=== PATIENT | female | born 1930 | race Caucasian/White ===

== ENCOUNTER 2018-04-22 16:02 | Emergency (ER) | payer OTHER ==
[~2018-04-22] VITALS: Ht 152.4 cm; Wt 59.0 kg
[~2018-04-22 16:02] MED LIST: ACID REDUCER 1150 MG; AMOX1TAB5; ATORVASTATIN CA10 MG; DULOXETINE HCL30 MG; DULOXETINE HCL60 MG; FOLBIC TABLET1 TAB; MEMANTINE HCL10 GM; NAMENDA10 MG; PNEU16DI2; PROVENTIL3 ML/2.5 M; RIVASTIGMINE1.5 MG; TUSSI PRES-B L120 M1; VIT BALANCED B-1 TAB; VITAMIN C500 MG; VITAMIN D-32000 UNIT; VITAMIN E400 UNI1; [UNRECOGNIZED DRUG - OTHER]
[2018-04-22] MEDS ORDERED: CENTRUM SILVER1 EAC2 (16:14)
== END 2018-04-22 18:33 | disposition home or self-care (01) ==
LOC: ER 16:02
DX: S20.212A Contusion of left front wall of thorax, initial encounter (principal); W01.198A Fall on same level from slipping, tripping and stumbling with subsequent striking against other object, initial encounter; Y93.E8 Activity, other personal hygiene; Y92.012 Bathroom of single-family (private) house as the place of occurrence of the external cause; Y99.8 Other external cause status

== ENCOUNTER 2018-09-22 16:32 | Inpatient (IN) | payer OTHER ==
[~2018-09-22] VITALS: Ht 152.4 cm; Wt 54.4 kg
[~2018-09-22 16:32] MED LIST changes: +CENTRUM SILVER1 EAC2
== END 2018-09-27 13:02 | disposition home or self-care (01) | DRG 191 ==
LOC: ER 16:32 → SURH 21:18
PROC: 4A033R1 Measurement of Arterial Saturation, Peripheral, Percutaneous Approach (ICD-10-PCS; principal; 2018-09-22)
PROC: 3E0F7GC Introduction of Other Therapeutic Substance into Respiratory Tract, Via Natural or Artificial Opening (ICD-10-PCS; 2018-09-22)
PROC: 8E0ZXY6 Isolation (ICD-10-PCS; 2018-09-24)
DX: J44.1 Chronic obstructive pulmonary disease with (acute) exacerbation (principal); I50.30 Unspecified diastolic (congestive) heart failure; J44.0 Chronic obstructive pulmonary disease with (acute) lower respiratory infection; J20.9 Acute bronchitis, unspecified; E86.0 Dehydration; G30.8 Other Alzheimer's disease; F02.80 Dementia in other diseases classified elsewhere, unspecified severity, without behavioral disturbance, psychotic disturbance, mood disturbance, and anxiety; R42 Dizziness and giddiness; I11.0 Hypertensive heart disease with heart failure; M81.0 Age-related osteoporosis without current pathological fracture; D53.8 Other specified nutritional anemias; D63.8 Anemia in other chronic diseases classified elsewhere

== ENCOUNTER 2018-11-09 09:34 | Inpatient (IN) | payer OTHER ==
--- NOTE | 2018-11-09 10:20 | NUR ---
SE ADMINISTRAN MEDICAMENTO BRONCODILATADOR Y ANTINFLAMATORIO SOLUMEDROL 125MG IV PUSH, SE CANALIZA PACIENTE BAJO ESTRICTAS MEDIDAS ESTERILES, SE CONTINUA MONITOREANDO POR CAMBIOS, PACIENTE AL MOMENTO ESTABLE DENTRO DE FARRAR CONDICION EN CUBICULO K8 BAJO OBSERVACION CONTINUA DE MONITOR CARDIACO, SE CONTINUA MONITOREANDO POR CAMBIOS, PACIENTE HEMODINAMICAMENTE ESTABLE DENTRO DE FARRAR CONDICION, ALERTA Y ORIENTADA X3.
[2018-11-09] MEDS ORDERED: CYMBALTA60 MG (10:23)
[2018-11-09] MEDS ORDERED: LASIX20 MG (10:24)
[2018-11-09] MEDS ORDERED: HYDRALAZINE HCL50 MG (10:24)
[2018-11-09] MEDS ORDERED: [UNRECOGNIZED DRUG - OTHER] (10:25)
[2018-11-09] MEDS ORDERED: PROVENTIL HFA6.7 GM (10:25)
[2018-11-09] MEDS ORDERED: ZITHROMAX100 MG/51 (10:26)
--- NOTE | 2018-11-09 10:27 | NUR ---
SE RECIBE PTE ALERTA Y ORIENTADA X3,[facility] POR FARRAR HIJA LA CUAL REFIERE QUE LA PTE TIENE COPD ESTA CON PROBLEMAS RESPIRATORIOS.
== END 2018-12-02 14:02 | disposition home or self-care (01) | DRG 190 ==
LOC: ER 09:34 → ICU 15:44 → ICU-2 15:44 → ICU 11-10 01:02 → MEDI 11-14 17:10
PROVIDERS: ADMIT Internal Medicine
PROC: 3E0F7GC Introduction of Other Therapeutic Substance into Respiratory Tract, Via Natural or Artificial Opening (ICD-10-PCS; 2018-11-09)
PROC: 4A033R1 Measurement of Arterial Saturation, Peripheral, Percutaneous Approach (ICD-10-PCS; 2018-11-09)
PROC: 0T9B70Z Drainage of Bladder with Drainage Device, Via Natural or Artificial Opening (ICD-10-PCS; 2018-11-09)
PROC: 8E0ZXY6 Isolation (ICD-10-PCS; 2018-11-10)
PROC: 4A12X4Z Monitoring of Cardiac Electrical Activity, External Approach (ICD-10-PCS; 2018-11-14)
PROC: BW24ZZZ Computerized Tomography (CT Scan) of Chest and Abdomen (ICD-10-PCS; principal; 2018-11-20)
PROC: B246ZZZ Ultrasonography of Right and Left Heart (ICD-10-PCS; 2018-11-26)
PROC: 30233N1 Transfusion of Nonautologous Red Blood Cells into Peripheral Vein, Percutaneous Approach (ICD-10-PCS; 2018-11-28)
DX: J44.1 Chronic obstructive pulmonary disease with (acute) exacerbation (principal); I50.43 Acute on chronic combined systolic (congestive) and diastolic (congestive) heart failure; A41.89 Other specified sepsis; J16.8 Pneumonia due to other specified infectious organisms; J15.212 Pneumonia due to Methicillin resistant Staphylococcus aureus; B37.1 Pulmonary candidiasis; E44.1 Mild protein-calorie malnutrition; B44.89 Other forms of aspergillosis; N39.0 Urinary tract infection, site not specified; B44.1 Other pulmonary aspergillosis; A90 Dengue fever [classical dengue]; J90 Pleural effusion, not elsewhere classified; E88.09 Other disorders of plasma-protein metabolism, not elsewhere classified; M62.89 Other specified disorders of muscle; D53.1 Other megaloblastic anemias, not elsewhere classified; G30.8 Other Alzheimer's disease; F02.80 Dementia in other diseases classified elsewhere, unspecified severity, without behavioral disturbance, psychotic disturbance, mood disturbance, and anxiety; I11.0 Hypertensive heart disease with heart failure; E86.0 Dehydration; B37.2 Candidiasis of skin and nail; L22 Diaper dermatitis; M12.88 Other specific arthropathies, not elsewhere classified, other specified site; D72.828 Other elevated white blood cell count; B96.29 Other Escherichia coli [E. coli] as the cause of diseases classified elsewhere; B96.0 Mycoplasma pneumoniae [M. pneumoniae] as the cause of diseases classified elsewhere; D63.8 Anemia in other chronic diseases classified elsewhere; R09.02 Hypoxemia; E87.8 Other disorders of electrolyte and fluid balance, not elsewhere classified